=== PATIENT | male | born 1950 | race Caucasian/White ===

== ENCOUNTER 2016-12-07 09:21 | Inpatient (IN) | payer MEDICARE ==
[~2016-12-07] VITALS: Ht 172.7 cm; Wt 82.1 kg
[2016-12-07] MEDS ORDERED: BYDUREON P2 MG/0.65 SQ (11:03)
[2016-12-07] MEDS ORDERED: LANTUS100 UNIT/1 SQ (11:05)
[2016-12-07] MEDS ORDERED: GLUCOTROL5 MG PO (11:06)
[2016-12-07] MEDS ORDERED: NEURONTIN 300300 MG PO (11:07)
[2016-12-07] MEDS ORDERED: SYNTHROID 25 M25 MCG PO (11:07)
[2016-12-07] MEDS ORDERED: LIPITOR TAB 2020 MG PO (11:08)
[2016-12-08 05:10] LABS: HEMOGLOBIN 13.2 gm/dl (14.0-17.5); RED BLOOD COUNT 4.28 M/UL (4.20-5.50); WHITE BLOOD COUNT 9.5 K/UL (4.5-11.0)
[2016-12-08 05:36] LABS: BUN/CREATININE RATIO 16 (0-10)
[2016-12-08] MEDS ORDERED: NORCO 7.5-3251 EACH PO (18:19)
== END 2016-12-08 19:18 | disposition home or self-care (01) | DRG 518 ==
LOC: OR 09:21 → M/S 15:30
PROVIDERS: ADMIT Orthopaedic Surgery
PROC: 0RR30JZ Replacement of Cervical Vertebral Disc with Synthetic Substitute, Open Approach (ICD-10-PCS; principal; 2016-12-07 12:30)
DX: M50.11 Cervical disc disorder with radiculopathy, high cervical region (principal); M48.02 Spinal stenosis, cervical region; E11.9 Type 2 diabetes mellitus without complications; E07.9 Disorder of thyroid, unspecified; E78.4 Other hyperlipidemia; J02.9 Acute pharyngitis, unspecified; M19.90 Unspecified osteoarthritis, unspecified site; N40.0 Benign prostatic hyperplasia without lower urinary tract symptoms; Z23 Encounter for immunization; Z79.4 Long term (current) use of insulin; Z87.891 Personal history of nicotine dependence; Z83.3 Family history of diabetes mellitus; Z80.9 Family history of malignant neoplasm, unspecified
CPT/HCPCS: 36415; 72040; 76000; 80048; 82962; 85025; 97116; C1713; G0008; J0690; J1815; J2250; J2710; J3010; J7030; J7050; J7120; Q2039